=== PATIENT | female | born 1990 ===

== ENCOUNTER 2018-01-16 18:02 | Emergency (ER) | payer MEDICAID ==
[~2018-01-16] VITALS: Ht 167.6 cm; Wt 57.2 kg
[2018-01-16] MEDS ORDERED: IBUP-23 PO (18:10)
== END 2018-01-16 18:28 | disposition home or self-care (01) ==
LOC: ER 18:05
DX: L03.213 Periorbital cellulitis (principal)
CPT/HCPCS: A4663